=== PATIENT | male | born 1975 | race African-American/Black ===

== ENCOUNTER 2020-08-20 11:35 | Emergency (ER) | payer SELFPAY ==
--- NOTE | ~2020-08-20 | XR_ITS ---
EXAMINATION: XR abdomen/kub 1V DATE: 08/20/2020 13:50 INDICATION: Right flank pain. TECHNIQUE: A supine view of the abdomen on 2 radiographs was obtained. COMPARISON: CT abdomen and pelvis 08/20/2020 FINDINGS: There are no dilated loops of bowel. There is contrast in the renal collecting system. Ther e is a delayed right-sided contrast nephrogram. IMPRESSION: 1. Delayed right-sided contrast nephrogram, consistent with obstructive uropathy. Reviewed, dictated and finalized at location A. IMPRESSION: 1. Delayed right-sided contrast nephrogram, consistent with obstructive uropath y.
--- NOTE | ~2020-08-20 | CT_ITS ---
EXAMINATION: CT abdomen pelvis w con INDICATION: Right-sided flank pain TECHNIQUE: Computed tomographic images of the abdomen and pelvis were obtained after the administrati on of 100 cc of Omnipaque 350 intravenous contrast. The dose-length product (DLP) was 715.26 mGy-cm. Automated exposure control and iterative reconstruction technique were employed. COMPARISON: None available FINDINGS: Minimal dependent atelectasis is present in the lung bases. The heart size is normal. The l iver, spleen, pancreas, gallbladder, and adrenal glands are normal. There is a 4 mm stone of the righ t distal ureter which causes mild right hydroureteronephrosis. There is right perinephric fat strandi ng and decreased perfusion of the right kidney compared to the left. The left kidney is unremarkable. No pathologically enlarged abdominal or pelvic lymph nodes are identified. There is no free intraper itoneal gas or evidence of bowel obstruction. A moderate volume of colonic stool is present. The appe ndix is normal. There is mild lumbar spondylosis. IMPRESSION: 1. 4 mm right distal ureteral stone causing mild right hydroureteronephrosis and possible superimpose d right pyelonephritis. Consider KUB for treatment planning purposes. Reviewed, dictated and finalized at location A. IMPRESSION: 1. 4 mm right distal ureteral stone causing mild right hydroureteronephrosis an d possible superimposed right pyelonephritis. Consider KUB for treatment planni ng purposes.
[2020-08-20 11:36] VITALS: BP 135/96; PULSE 82; RESP 20; O2SAT 98
[2020-08-20] MEDS: SODIUM CHLORIDE 0.9% IV 1,000 ML 999 ML IV CONT (12:16)
[2020-08-20] MEDS: METOCLOPRAMIDE HCL INJ 10 MG/2 ML VIAL IV PUSH (12:16)
[2020-08-20] MEDS: ONDANSETRON INJ 4 MG/2 ML VIAL IV PUSH (12:16)
[2020-08-20] MEDS: KETOROLAC 30 MG/ML VIAL (*BKC) IV PUSH (12:16)
--- NOTE | 2020-08-20 12:16 | ED.GENADULT ---
HPI - General Adult General Chief complaint: Abdominal Pain Stated complaint: Abd pain Time Seen by Provider: 08/20/20 11:41 Source: patient History of Present Illness HPI narrative: Patient is a 45 y/o male complaining of right side abdominal pain radiating to right back starting last night. He describes his pain as sharp and rates it as 10/10. There is no alleviating or exacerbating factor. He also has some nausea and vomiting. He denies any fever, dysuria or hematuria. Related Data Allergies Allergy/AdvReac Type Severity Reaction Status Date / Time No Known Allergies Allergy Verified 08/20/20 11:41 Review of Systems Constitutional: Constitutional: Denies chills, Denies fever(s), Denies headache(s) and Denies weakness Eyes: Eyes: Denies blurry vision ENT: Denies headache(s) and Denies neck pain Cardiovascular: Cardiovascular: Denies chest pain and Denies dyspnea Respiratory: Respiratory: Denies cough and Denies dyspnea Gastrointestinal: Gastrointestinal: Reports abdominal pain, Denies diarrhea, Reports nausea and Reports vomiting Genitourinary: Genitourinary: Denies hematuria and Denies dysuria Musculoskeletal: Musculoskeletal: Reports back pain and Denies neck pain Neurologic: Denies headache(s) and Denies weakness Exam Const: General: no acute distress and well developed Orientation/consciousness: oriented to person, oriented to place, oriented to time and patient oriented x3 HENMT: Head: normocephalic Ears: external ears normal General nose exam: Normal external nose present Eyes: General: appearance normal, both eyes and all related structures Conjunctivae: conjunctivae normal Neck: Neck: normal visual inspection and full ROM Chest: Chest palpation & inspection: normal inspection of the chest and no tenderness Resp: Effort & Inspection: normal respiratory effort Auscultation: clear to auscultation bilaterally Cardio: Rate: regular rate Rhythm: regular rhythm GI: GI Palp: No abdominal tenderness and Yes Soft to palpation Skin: General skin exam: normal color and turgor normal Neuro: General: oriented to person, oriented to place, oriented to time and patient oriented x3 Cognition (Neuro): normal cognition Extrem: General: normal to inspection, full ROM and no pedal edema Psych: Appearance: grossly normal Mental Status: mental status grossly normal Affect: Anxious affect present Course Reevaluation(s) Reevaluation #1: Rechecked. Patient feels better, although he still has some pain. Offered patient admission for pain control and urology consult. Patient does not want to stay and wants to go home and try oral medication. Date: 08/20/20 Time: 15:50 Vital Signs Vital signs: Vital Signs Pulse Rate 82 08/20/20 11:36 Respiratory Rate 20 08/20/20 11:36 Blood Pressure 135/96 H 08/20/20 11:36 Pulse Oximetry 98 08/20/20 11:36 Pulse Rate 75 08/20/20 16:57 Respiratory Rate 16 08/20/20 16:57 Blood Pressure 137/78 08/20/20 16:57 Pulse Oximetry 100 08/20/20 16:57 Medical Decision Making Vital Signs Vital Signs: Vital Signs Pulse Rate 82 08/20/20 11:36 Respiratory Rate 20 08/20/20 11:36 Blood Pressure 135/96 H 08/20/20 11:36 Pulse Oximetry 98 08/20/20 11:36 Pulse Rate 75 08/20/20 16:57 Respiratory Rate 16 08/20/20 16:57 Blood Pressure 137/78 08/20/20 16:57 Pulse Oximetry 100 08/20/20 16:57 Lab Data Result diagrams: 08/20/20 12:15 08/20/20 12:15 Labs: Lab Results 08/20/20 08/20/20 08/20/20 Range/Units 12:15 12:15 14:12 WBC 13.2 H (4.5-10.0) K/mm3 RBC 5.44 (4.6-6.20) M/mm3 Hgb 16.8 (14.0-18.0) g/dL Hct 47.7 (42.0-52.0) % MCV 87.7 (80-100) fl MCH 30.9 (26-34) pg MCHC 35.2 (32-36) g/dl RDW 13.2 (11.5-14.5) % Plt Count 300 (150-375) k/mm3 MPV 11.5 H (7.4-10.4) fl Immature Gran % (Auto) 0.5 (0-0.5) % Neut % (Auto) 78.4 H (45.5-73.1) %
[2020-08-20 12:38] LABS: Basophils Absolute Auto 0.1 K/mm3 (0.0-0.1); Basophils Percent Auto 0.6 % (0.2-1.2); Eosinophils Percent Auto 0.3 % (0-4.4); Hematocrit 47.7 % (42.0-52.0); Hemoglobin 16.8 g/dL (14.0-18.0); Immature Granulocyte Absolute 0.07 K/mm3 (0.00-0.031); Immature Granulocyte Percent A 0.5 % (0-0.5); Lymphocytes Absolute Auto 1.77 K/mm3 (0.9-3.2); Lymphocytes Percent Auto 13.4 % (18.3-44.2); Mean Corpuscular HGB Conc 35.2 g/dl (32-36); Mean Corpuscular Hemoglobin 30.9 pg (26-34); Mean Corpuscular Volume 87.7 fl (80-100); Mean Platelet Volume 11.5 fl (7.4-10.4); Monocytes Absolute Auto 0.9 K/mm3 (0.1-0.6); Monocytes Percent Auto 6.8 % (2.6-8.5); Neutrophils Absolute Auto 10.4 K/mm3 (1.3-6.7); Neutrophils Percent Auto 78.4 % (45.5-73.1); Platelet Count Result 300 k/mm3 (150-375); Red Blood Count 5.44 M/mm3 (4.6-6.20); Red Cell Distribution Width 13.2 % (11.5-14.5); White Blood Count 13.2 K/mm3 (4.5-10.0)
[2020-08-20 12:48] LABS: Anion Gap 10 mmol/L (8-16); Blood Urea Nitrogen 12 mg/dL (9-20); Carbon Dioxide 30 mmol/L (22-30); Chloride 100 mmol/L (98-107); Estimated CRCL calculation 98 ml/min; Estimated Glomerular Filt Rate > 60; Glucose 145 mg/dL (75-110); Potassium 3.5 mmol/L (3.4-5.0); Sodium 140 mmol/L (137-145)
[2020-08-20] MEDS: fentaNYL CITRATE INJ (*CRX) 100 MCG/2 ML VIAL 50 MCG IV PUSH (14:07)
[2020-08-20 14:43] LABS: Add Urine Microscopic? YES; Appearance Urine Clear (Clear); Bilirubin Urine Negative (Negative); Blood Urine 3+ (Negative); Color Urine Yellow (Yellow); Glucose Urine UA 1+ mg/dL (Negative); Ketones Urine 1+ mg/dL (Negative); Leukocyte Esterase Ur Negative LEU/UL (Negative); Mucus Urine Rare /lpf; Nitrate Urine Negative (Negative); Protein Urine 1+ mg/dL (Negative); RBC Urine >75 /hpf (0-2); Squamous Epithelial Cell Urine Few /hpf (Few)
[2020-08-20 14:48] LABS: Specific Grav Ur 1.055 (1.001-1.035)
[2020-08-20 16:57] VITALS: BP 137/78; PULSE 75; RESP 16; O2SAT 100
== END 2020-08-20 16:58 | disposition home or self-care (01) ==
PROVIDERS: Emergency Medicine; Emergency Provider Emergency Medicine
DX: N20.1 Calculus of ureter (principal)
CPT/HCPCS: 36415; 74018; 74177; 80048; 81001; 85025; 96361; 96374; 96375; 99284; J1885; J2405; J2765; J3010; J7030; Q9967